=== PATIENT | female | born 1965 | race Caucasian/White ===

== ENCOUNTER 2024-10-25 07:09 | Emergency (ER) | payer OTHER ==
[2024-10-25] MEDS: HYDROmorphone 1 MG/ML Syringe IVPUSH ONE ×2 (07:26→08:16)
[2024-10-25] MEDS: Etomidate 2 MG/ML 20 ML SDV IVPUSH ONE (09:40)
[2024-10-25] MEDS: fentaNYL 50 MCG/ML SDV IVPUSH ONE (09:53)
== END 2024-10-25 12:49 | disposition home or self-care (01) ==
LOC: MW.ED 07:09
DX: S82.851A Displaced trimalleolar fracture of right lower leg, initial encounter for closed fracture (principal); Z88.2 Allergy status to sulfonamides; Z79.899 Other long term (current) drug therapy; Z75.8 Other problems related to medical facilities and other health care; W00.0XXA Fall on same level due to ice and snow, initial encounter; X50.1XXA Overexertion from prolonged static or awkward postures, initial encounter
CPT/HCPCS: 27818; 73610; 96374; 96375; 96376; 99152; 99284; J1171; J3010; J3490

== ENCOUNTER 2024-11-09 10:39 | Day surgery (SDC) | payer OTHER ==
[~2024-11-09 10:39] MED LIST: Albuterol 0.083% 2.5 MG/3 ML Neb Soln NEB PRN; HYDROmorphone 1 MG/ML Syringe IVPUSH PRN; Morphine 2 MG/ML SYRINGE IVPUSH PRN; Naloxone 0.4 MG/ML SDV IVPUSH PRN; Phenylephrine HCl In 0.9% NaCl 1 MG/10 ML Syringe IVPUSH PRN; ceFAZolin 2 GM in Sodium Chloride 0.9% 50 ML IV ONE
[2024-11-09] MEDS ORDERED: Ropivacaine 0.5% 5 MG/ML 30 ML SDV ONE (10:47)
[2024-11-09] MEDS: Lactated Ringers 1,000 ML IV SCH (11:17)
[2024-11-09] MEDS ORDERED: Lidocaine 2% 5 ML SDV ONE (11:25)
[2024-11-09] MEDS ORDERED: fentaNYL 100 MCG/2 ML SDV ONE (11:25)
[2024-11-09] MEDS ORDERED: Propofol 200 MG/20 ML SDV ONE (11:25)
[2024-11-09] MEDS ORDERED: Midazolam 1 MG/ML 2 ML SDV ONE (11:25)
[2024-11-09] MEDS ORDERED: Sodium Chloride 0.9% 20 ML ONE (11:26)
[2024-11-09] MEDS ORDERED: dexmedeTOMIDine HCl 200 MCG/2 ML SDV ONE (11:26)
[2024-11-09] MEDS: fentaNYL 50 MCG/ML SDV IVPUSH PRN (11:30)
[2024-11-09] MEDS: Scopalamine 1mg/3day Transdermal Patch TOP ONE (11:50)
[2024-11-09] MEDS: Scopalamine 1mg/3day Transdermal Patch ONE (11:53)
[2024-11-09] MEDS ORDERED: Ondansetron 4 MG/2 ML SDV ONE (13:03)
[2024-11-09] MEDS ORDERED: ceFAZolin 1 GM Vial ONE (13:06)
[2024-11-09] MEDS ORDERED: HYDROmorphone 1 MG/ML Syringe ONE (14:00)
[2024-11-09] MEDS ORDERED: Ketorolac 30 MG/ML SDV ONE (14:42)
[2024-11-09] MEDS: Ondansetron 4 MG/2 ML SDV IVPUSH PRN (15:24)
[2024-11-09] MEDS: Metoclopramide 10 MG/2 ML SDV IVPUSH PRN (15:30)
[2024-11-09] MEDS: Acetaminophen/HYDROcodone 325-5 MG Tab PO ONE (17:30)
[2024-11-09] MEDS: Acetaminophen/HYDROcodone 325-5 MG Tab ONE (19:23)
== END 2024-11-09 18:00 | disposition home or self-care (01) ==
LOC: MW.SDS 10:39 → MW.MS 16:17 → MW.SDS 18:25
PROVIDERS: ATTEND Orthopaedic Surgery
DX: S82.851A Displaced trimalleolar fracture of right lower leg, initial encounter for closed fracture (principal); S93.431A Sprain of tibiofibular ligament of right ankle, initial encounter; I10 Essential (primary) hypertension; E78.00 Pure hypercholesterolemia, unspecified; K21.9 Gastro-esophageal reflux disease without esophagitis; F32.A Depression, unspecified; F41.9 Anxiety disorder, unspecified; Z79.899 Other long term (current) drug therapy; Z88.2 Allergy status to sulfonamides; X58.XXXA Exposure to other specified factors, initial encounter
CPT/HCPCS: 27792; 27829; 76000; A9270; C1713; C1776; J0131; J0690; J1171; J1885; J2250; J2405; J2704; J2765; J2795; J3010; J7120; 01480; 64445; J3490

== ENCOUNTER 2024-11-18 11:32 | Day surgery (SDC) | payer OTHER ==
[~2024-11-18 11:32] MED LIST changes: +Lactated Ringers 1,000 ML IV SCH; +Metoclopramide 10 MG/2 ML SDV IVPUSH PRN; +Ondansetron 4 MG/2 ML SDV IVPUSH PRN; -ceFAZolin 2 GM in Sodium Chloride 0.9% 50 ML IV ONE; +fentaNYL 50 MCG/ML SDV IVPUSH PRN
[2024-11-18] MEDS ORDERED: fentaNYL 100 MCG/2 ML SDV ONE (12:10)
[2024-11-18] MEDS ORDERED: Propofol 200 MG/20 ML SDV ONE (12:10)
[2024-11-18] MEDS ORDERED: Midazolam 1 MG/ML 2 ML SDV ONE (12:11)
[2024-11-18] MEDS ORDERED: Lidocaine 2% 5 ML SDV ONE (12:11)
[2024-11-18] MEDS ORDERED: Bupivacaine 0.25% 30 ML SDV ONE (12:18)
[2024-11-18] MEDS ORDERED: ceFAZolin 1 GM Vial ONE (12:53)
[2024-11-18] MEDS ORDERED: ceFAZolin 2 GM in Sodium Chloride 0.9% 50 ML IV ONE (13:00)
[2024-11-18] MEDS ORDERED: Ketorolac 30 MG/ML SDV ONE (13:03)
[2024-11-18] MEDS ORDERED: Dexamethasone 4 MG/ML 5 ML MDV ONE (13:03)
[2024-11-18] MEDS ORDERED: Ondansetron 4 MG/2 ML SDV ONE (13:03)
[2024-11-18] MEDS ORDERED: HYDROmorphone 1 MG/ML Syringe ONE ×2 (13:05→13:44)
== END 2024-11-18 15:45 | disposition home or self-care (01) ==
LOC: MW.SDS 11:32
PROVIDERS: ATTEND Orthopaedic Surgery
DX: S82.851A Displaced trimalleolar fracture of right lower leg, initial encounter for closed fracture (principal); S93.431A Sprain of tibiofibular ligament of right ankle, initial encounter; I10 Essential (primary) hypertension; E66.9 Obesity, unspecified; E11.9 Type 2 diabetes mellitus without complications; K21.9 Gastro-esophageal reflux disease without esophagitis; Z79.899 Other long term (current) drug therapy; Z87.891 Personal history of nicotine dependence; Z88.2 Allergy status to sulfonamides
CPT/HCPCS: 27766; 76000; C1713; J0131; J0665; J0690; J1100; J1171; J1885; J2250; J2405; J2704; J3010; 01480; J3490